=== PATIENT | male | born 1955 | race Caucasian/White ===

== ENCOUNTER 2017-10-16 08:33 | Day surgery (SDC) | payer BC ==
[~2017-10-16] VITALS: Ht 167.6 cm; Wt 73.5 kg
[~2017-10-16 08:33] MED LIST: ASPIR 8181 M1 PO; METFORMIN HCL500 MG PO; MULTIVITAMIN1 EAC2 PO; VITAMIN C500 M6 PO; ZINC50 M2 PO
[2017-10-16 09:31] VITALS: BP 120/70
[2017-10-16 09:49] LABS: POINT-OF-CARE METER ID UU14174212
[2017-10-16 11:02] LABS: POINT-OF-CARE METER ID UU13113675
[2017-10-16 12:08] VITALS: BP 117/77
[2017-10-16 13:12] VITALS: BP 92/58
== END 2017-10-16 13:20 | disposition home or self-care (01) ==
LOC: SDC 08:33
PROVIDERS: Thoracic Surgery (Cardiothoracic Vascular Surgery)
PROC: 0DBQXZX Excision of Anus, External Approach, Diagnostic (ICD-10-PCS; principal; 2017-10-16)
DX: K62.0 Anal polyp (principal); K61.0 Anal abscess; Z85.828 Personal history of other malignant neoplasm of skin; E11.9 Type 2 diabetes mellitus without complications; Z79.84 Long term (current) use of oral hypoglycemic drugs; Z79.82 Long term (current) use of aspirin; Z87.891 Personal history of nicotine dependence
CPT/HCPCS: 82948; 88305; 93005; J0330; J0690; J1100; J1885; J2250; J2405; J3010